=== PATIENT | male | born 1990 | race African-American/Black ===

== ENCOUNTER 2018-01-16 09:24 | Emergency (ER) | payer OTHER ==
[2018-01-16 09:31] VITALS: BP 123/73; PULSE 94; TEMP 98.4; BMI 29.7
[2018-01-16] MEDS ORDERED: LORATADINE 10 MG TABLET ONE (09:48)
[2018-01-16] MEDS ORDERED: LORATADINE 10 MG TABLET PO ONE (09:51)
--- NOTE | 2018-01-16 09:54 | PDOC ---
History of Present Illness - General Chief Complaint: Eye Problem Stated Complaint: SWOLLEN LT EYE Time Seen by Provider: 01/16/18 09:40 History Source: Patient Exam Limitations: No Limitations (L eye swelling X 4 days) Past History - Past Medical History Allergies/Adverse Reactions: Allergies Allergy/AdvReac Type Severity Reaction Status Date / Time No Known Allergies Allergy Verified 01/16/18 09:31 Home Medications: Ambulatory Orders Doxycycline Monohydrate [Monodox] 100 mg PO Q12H #14 capsule 01/16/18 Erythromycin 0.5% Eye Ointment [Erythromycin 0.5% Eye Ointment -] 1 applic AD TID 7 Days #1 tube 01/16/18 Loratadine 10 mg PO DAILY 30 Days #30 tablet 01/16/18 COPD: No - Suicide/Smoking/Psychosocial Hx Smoking History: Never smoked *Physical Exam - Vital Signs Last Vital Signs Temp Pulse Resp BP Pulse Ox 98.4 F 94 H 18 123/73 99 01/16/18 09:29 01/16/18 09:29 01/16/18 09:29 01/16/18 09:29 01/16/18 09:29 - Physical Exam General Appearance: Yes: Nourished HEENT: positive: EOMI, EDMAR, Other (conjuctiva clear, + upper eye lid swelling-- moderate with crusty eye lid--L eye) Respiratory/Chest: positive: Lungs Clear, Normal Breath Sounds Cardiovascular: positive: Regular Rhythm, Regular Rate 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, Fully Oriented, Alert Medical Decision Making - Medical Decision Making 01/16/18 09:49 27y/o M with no prior med hx p/w L eye lid swelling X 4 days, denies trauma, contact lens use or blurred vision exam consistent with L blepharitis Rx for erythromycin oniment sent to pharmacy warm compress *DC/Admit/Observation/Transfer Diagnosis at time of Disposition: Blepharitis of left eye Qualifiers: Blepharitis type: unspecified type Eyelid: upper Qualified Code(s): H01.004 - Unspecified blepharitis left upper eyelid - Discharge Dispostion Disposition: HOME Condition at time of disposition: Stable Decision to Admit order: No - Prescriptions Prescriptions: Doxycycline Monohydrate [Monodox] 100 mg PO Q12H #14 capsule Erythromycin 0.5% Eye Ointment [Erythromycin 0.5% Eye Ointment -] 1 applic AD TID 7 Days #1 tube Loratadine 10 mg PO DAILY 30 Days #30 tablet - Referrals - Patient Instructions Additional Instructions: Wash your hands thoroughly. Moisten a clean washcloth with warm water. Close eyes and place washcloth on eyelids for about 5 minutes, reheating the washcloth as necessary. Repeat several times daily. followup with primary care doctor if condition worsening or return to the [facility] - Post Discharge Activity
== END 2018-01-16 10:01 | disposition home or self-care (01) ==
LOC: JERFT 09:24
DX: H01.004 Unspecified blepharitis left upper eyelid (principal)
CPT/HCPCS: 99281-25

== ENCOUNTER 2018-03-07 11:09 | Emergency (ER) | payer OTHER ==
[2018-03-07 11:37] VITALS: BP 146/83; PULSE 75; TEMP 98; BMI 65.6
[2018-03-07] MEDS ORDERED: IBUPROFEN 400 MG TABLET (FP) PO ONE ×2 (12:01→12:04)
--- NOTE | 2018-03-07 12:08 | PDOC ---
History of Present Illness - General Chief Complaint: Sore Throat Stated Complaint: SORE THROAT Time Seen by Provider: 03/07/18 11:46 History Source: Patient - History of Present Illness Timing/Duration: reports: week Associated Symptoms: reports: cough Past History - Past Medical History Allergies/Adverse Reactions: Allergies Allergy/AdvReac Type Severity Reaction Status Date / Time No Known Allergies Allergy Verified 03/07/18 11:36 Home Medications: Ambulatory Orders NK [No Known Home Medication] 03/07/18 COPD: No - Suicide/Smoking/Psychosocial Hx Smoking History: Never smoked Have you smoked in the past 12 months: No Information on smoking cessation initiated: No Hx Alcohol Use: No Drug/Substance Use Hx: No Review of Systems - Review of Systems Constitutional: No: Chills, Fever HEENTM: Yes: Throat Pain. No: Ear Pain Respiratory: Yes: Cough. No: Shortness of Breath, Wheezing *Physical Exam - Vital Signs Last Vital Signs Temp Pulse Resp BP Pulse Ox 98.0 F 75 16 146/83 100 03/07/18 11:35 03/07/18 11:35 03/07/18 11:35 03/07/18 11:35 03/07/18 11:35 - Physical Exam General Appearance: Yes: Appropriately Dressed. No: Apparent Distress HEENT: positive: EOMI, Normal Voice, TMs Normal, Other (R tonsil swelling). negative: Tonsillar Exudate, Tonsillar Erythema Neck: positive: Supple. negative: Lymphadenopathy (R), Lymphadenopathy (L) Respiratory/Chest: negative: Respiratory Distress Integumentary: positive: Dry, Warm Neurologic: positive: Fully Oriented, Alert, Normal Mood/Affect Medical Decision Making - Medical Decision Making 03/07/18 12:09 27-year-old male, no significant history, non-smoker, here with sore throat 1 week. States he had cough few days ago that has since resolved. No ear pain, rhinorrhea, fever or chills. Has not taken anything for pain. No sick contacts or recent travel. 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 Pain control in ED rapid strep pending *DC/Admit/Observation/Transfer Diagnosis at time of Disposition: Sore throat - Discharge Dispostion Disposition: HOME Condition at time of disposition: Good - Referrals - Patient Instructions Printed Discharge Instructions: DI for Viral Pharyngitis Additional Instructions: Your strep test was negative You most likely have a viral sore throat Take Motrin or Tylenol for pain as needed until symptoms resolve - Post Discharge Activity
== END 2018-03-07 12:38 | disposition home or self-care (01) ==
LOC: JERFT 11:09
DX: J02.9 Acute pharyngitis, unspecified (principal)
CPT/HCPCS: 87070; 87430; 99281-25

== ENCOUNTER 2018-06-17 12:07 | Emergency (ER) | payer OTHER ==
[2018-06-17 12:13] VITALS: BP 136/86; PULSE 67; TEMP 98; BMI 29.0
[2018-06-17] MEDS ORDERED: IBUPROFEN 400 MG TABLET (FP) PO ONE ×2 (13:21→13:25)
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
== END 2018-06-17 14:07 | disposition home or self-care (01) ==
LOC: JERFT 12:07
DX: S20.211A Contusion of right front wall of thorax, initial encounter (principal); V18.4XXA Pedal cycle driver injured in noncollision transport accident in traffic accident, initial encounter; Y92.410 Unspecified street and highway as the place of occurrence of the external cause; Y93.55 Activity, bike riding; Y99.8 Other external cause status
CPT/HCPCS: 71101-TC-FY; 99281-25

== ENCOUNTER 2019-03-22 12:50 | Emergency (ER) | payer OTHER ==
[2019-03-22 13:14] VITALS: BP 136/95; PULSE 99; TEMP 98.2; BMI 30.5
--- NOTE | 2019-03-22 13:52 | PDOC ---
History of Present Illness - General Chief Complaint: Cold Symptoms Stated Complaint: ALLERGIES Time Seen by Provider: 03/22/19 13:29 - History of Present Illness Initial Comments: 03/22/19 13:43 CHIEF COMPLAINT: congestion HISTORY OF PRESENT ILLNESS: 28 yo M with no PMH presents to fast track with nasal congestion. Patient denies any fever, sore throat, cough, chills, vomiting, diarrhea. Reports "it just feels uncomforable now." Patient is not taking any medications for his congestion at this time. No recent travel or sick contacts. PAST MEDICAL HISTORY: Denies past medical history FAMILY HISTORY: Denies SOCIAL HISTORY: Denies tobacco, alcohol, illicit drug use. SURGICAL HISTORY: Denies ALLERGIES: No known drug allergies REVIEW OF SYSTEMS General/Constitutional: Denies fever or chills. Denies weakness, weight change. HEENT: "Nasal congestion." Denies change in vision. Denies ear pain or discharge. Denies sore throat. Cardiovascular: Denies chest pain or shortness of breath. Respiratory: Denies cough, wheezing, or hemoptysis. Gastrointestinal: Denies nausea, vomiting, diarrhea or constipation. Denies rectal bleeding. Genitourinary: Denies dysuria, frequency, or change in urination. Musculoskeletal: Denies joint or muscle swelling or pain. Denies neck or back pain. Skin and breasts: Denies rash or easy bruising. Neurologic: Denies headache, vertigo, loss of consciousness, or loss of sensation. PHYSICAL EXAM General Appearance: Well-appearing, appropriately dressed. No apparent distress , no intoxication. HEENT: Swollen turbinates, minimal post nasal drip. EOMI, PERRLA, normal ENT inspection, normal voice, TMs normal, pharynx normal. No conjunctival pallor. No photophobia, scleral icterus. Neck: Supple. Trachea midline. No tenderness, rigidity, carotid bruit, stridor , lymphadenopathy, or thyromegaly. Respiratory/Chest: Lungs CTAB. No shortness of breath, chest tenderness, respiratory distress, accessory muscle use. No crackles, rales, rhonchi, stridor , wheezing, dullness Cardiovascular: RRR. S1, S2. No JVD, murmur, bradycardia, tachycardia. Vascular Pulses: Dorsalis-Pedis (R): 2+, Dorsalis-Pedis (L): 2+ Gastrointestinal/Abdominal: Normal bowel sounds. Abdomen soft, non-distended. No tenderness or rebound tenderness. No organomegaly, pulsatile mass, guarding , hernia, hepatomegaly, splenomegaly. Lymphatic: No adenopathy, tenderness. Musculoskeletal/Extremities: Normal inspection. FROM of all extremities, normal capillary refill. Pelvis Stable. No CVA tenderness. No tenderness to extremities, pedal edema, swelling, erythema or deformity. Integumentary: Appropriate color, dry, warm. 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 Fully oriented, alert. Appropriate mood/affect. Motor strength 5/5. No appreciable EOM palsy, facial droop or sensory deficit. Past History - Past Medical History Allergies/Adverse Reactions: Allergies Allergy/AdvReac Type Severity Reaction Status Date / Time No Known Allergies Allergy Verified 03/22/19 13:12 Home Medications: Ambulatory Orders Amox-Tr/K Cl [Augmentin 875Mg Tablet] 1 tab PO BID #20 tablet 03/28/18 Ibuprofen 800 mg PO TID #30 tablet 06/17/18 Fluticasone Prop 0.05% Nasal [Flonase -] 1 - 2 spray NS BID #1 spray.pump Loratadine [Claritin] 10 mg PO DAILY #20 tablet 03/22/19 Pseudoephedrine HCl [Sudafed] 120 mg PO BID #20 tablet 03/22/19 COPD: No DVT: No - Immunization History Immunization Up to Date: Yes - Suicide/Smoking/Psychosocial Hx Smoking History: Never smoked Have you smoked in the past 12 months: No Hx Alcohol Use: No Drug/Substance Use Hx: No Substance Use Type: None *Physical Exam - Vital Signs Last Vital Signs Temp Pulse Resp BP Pulse Ox 98.2 F 99 H 18 136/95 97 03/22/19 13:12 03/22/19 13:12 03/22/19 13:12 03/22/19 13:12 03/22/19 13:12 Medical Decision Making - Medical Decision Making 03/22/19 13:52 28 yo M with no PMH presents to fast track with nasal congestion. Flonase, sudafed, claritin *DC/Admit/Observation/Transfer Diagnosis at time of Disposition: Viral sinusitis - Discharge Dispostion Disposition: HOME Decision to Admit order: No - Prescriptions Prescriptions: Fluticasone Prop 0.05% Nasal [Flonase -] 1 - 2 spray NS BID #1 spray.pump Loratadine [Claritin] 10 mg PO DAILY #20 tablet Pseudoephedrine HCl [Sudafed] 120 mg PO BID #20 tablet - Referrals Referrals: Aleida Lewis MD [Primary Care Provider] - - Patient Instructions Printed Discharge Instructions: DI for Sinusitis - Post Discharge Activity
== END 2019-03-22 13:57 | disposition home or self-care (01) ==
LOC: JERFT 12:50
DX: J32.8 Other chronic sinusitis (principal); B97.89 Other viral agents as the cause of diseases classified elsewhere
CPT/HCPCS: 99281-25

== ENCOUNTER 2019-06-09 13:29 | Emergency (ER) | payer OTHER ==
--- NOTE | 2019-06-09 13:39 | PDOC ---
Rapid Medical Evaluation Time Seen by Provider: 06/09/19 13:31 Medical Evaluation: Allergies Allergy/AdvReac Type Severity Reaction Status Date / Time No Known Allergies Allergy Verified 03/22/19 13:12 06/09/19 13:32 CC: cough x "a few days" PE: Speaking full sentences. Lungs CTAB. Orders: nothing Patient will proceed to ED for further evaluation. Discharge Disposition - Diagnosis Cough - Referrals - Patient Instructions - Post Discharge Activity
[2019-06-09 13:40] VITALS: BP 131/90; PULSE 102; TEMP 98.2; BMI 29.0
[2019-06-09] MEDS ORDERED: ALBUTEROL SO4 2.5/IPRATROPIUM 0.5 INH SOL 3 ML VIAL.NEB. NEB ONE ×2 (13:47→14:10)
[2019-06-09] MEDS ORDERED: predniSONE 20 MG TABLET (UD) PO ONE (14:10)
[2019-06-09] MEDS ORDERED: predniSONE 20 MG TABLET (UD) ONE (14:18)
--- NOTE | 2019-06-09 14:42 | PDOC ---
History of Present Illness - General Chief Complaint: Asthma Stated Complaint: ASTHMA Time Seen by Provider: 06/09/19 13:31 History Source: Patient Exam Limitations: No Limitations - History of Present Illness Initial Comments: 06/09/19 14:37 28-year-old male presents the emergency room with complaints of increasing wheezing cough and shortness of breath along with nasal congestion for the past 2 days. Patient states history of asthma but does not have an inhaler at home so used his grandmother's this morning with good effect. Patient denies fever, chills but states has had increased nasal congestion causing him to which he feels is dripping to the back of his throat. Patient has no other complaints at this time . Patient denies smoking. Is this a multiple visit Asthma Patient?: No Timing/Duration: reports: other Severity: reports: mild Possible Cause: Yes: occasional episodes Modifying Factors: improves with: activity, coughing Associated Symptoms: reports: cough, nasal congestion, shortness of breath, wheezing Past History - Travel Traveled outside of the country in the last 30 days: No Close contact w/someone who was outside of country & ill: No - Past Medical History Allergies/Adverse Reactions: Allergies Allergy/AdvReac Type Severity Reaction Status Date / Time No Known Allergies Allergy Verified 03/22/19 13:12 Home Medications: Ambulatory Orders NK [No Known Home Medication] 06/09/19 COPD: No DVT: No - Immunization History Immunization Up to Date: Yes - Psycho Social/Smoking Cessation Hx Smoking History: Never smoked Have you smoked in the past 12 months: No Hx Alcohol Use: No Drug/Substance Use Hx: No Substance Use Type: None Patient Lives Alone: No Lives with/in: spouse/SO Respiratory Specific PMHX - Complaint Specific PMHX Hx Asthma: Yes Review of Systems - Review of Systems Able to Perform ROS?: Yes Constitutional: No: Symptoms Reported HEENTM: Yes: Nose Congestion Respiratory: Yes: Cough, Shortness of Breath, Wheezing Cardiac (ROS): No: Symptoms Reported ABD/GI: No: Symptoms Reported : No: Symptoms Reported Musculoskeletal: No: Symptoms Reported Neurological: Yes: Headache *Physical Exam - Vital Signs Last Vital Signs Temp Pulse Resp BP Pulse Ox 98.2 F 102 H 17 131/90 99 06/09/19 13:36 06/09/19 13:36 06/09/19 13:36 06/09/19 13:36 06/09/19 13:36 - Physical Exam General Appearance: Yes: Nourished, Appropriately Dressed. No: Apparent Distress HEENT: positive: TMs Normal, Pharynx Normal. negative: Pale Conjunctivae Neck: positive: Supple Respiratory/Chest: positive: Lungs Clear, Normal Breath Sounds, Wheezing (mild exp to rt base). negative: Respiratory Distress Cardiovascular: positive: Regular Rhythm, Regular Rate (88 ). negative: Murmur Gastrointestinal/Abdominal: positive: Soft. negative: Tenderness Extremity: positive: Normal Inspection Integumentary: positive: Normal Color, Warm, Moist Neurologic: positive: Motor Strength 5/5 (ambulatory) ED Treatment Course - Medications Given in the ED: ED Medications Discontinued Medications Generic Name Dose Route Start Last Admin Trade Name Freq PRN Reason Stop Dose Admin Albuterol/Ipratropium 1 amp 06/09/19 14:10 06/09/19 14:23 Duoneb - NEB 06/09/19 14:11 1 amp ONCE ONE Administration Prednisone 40 mg 06/09/19 14:10 06/09/19 14:23 Deltasone - PO 06/09/19 14:11 40 mg ONCE ONE Administration Medical Decision Making - Medical Decision Making 06/09/19 14:36 chief complaint: Patient with cough, shortness of breath and wheezing for the past 2 days relieved with his grandmother's inhaler requesting medication for the above symptoms no other complaints Exam patient with mild expiratory wheeze to the right base otherwise normal vital signs positive rhinorrhea Plan : Prednisone 40 p.o. once albuterol nebulizer and discharged home with the same 06/09/19 14:58 Patient reassessed no auscultated wheezing vital signs stable will discharge home with the same Discharge - Discharge Information Clinical Impression/Diagnosis: Cough Condition: Improved Disposition: HOME - Follow up/Referral Referrals: Aleida Lewis MD [Primary Care Provider] - - Patient Discharge Instructions Patient Printed Discharge Instructions: Asthma -- Adult Additional Instructions: Take prednisone starting tomorrow for the next 2 days since you were given your first dose here in the ER. Please use albuterol inhaler as needed for wheezing and cough. Please take Claritin as prescribed for the next 7 days to decrease nasal congestion. drink plenty of fluids and keep nasal passages clear. - Post Discharge Activity
== END 2019-06-09 15:10 | disposition home or self-care (01) ==
LOC: JER 13:29
PROC: 3E0F7GC Introduction of Other Therapeutic Substance into Respiratory Tract, Via Natural or Artificial Opening (ICD-10-PCS; principal; 2019-06-09)
DX: J45.909 Unspecified asthma, uncomplicated (principal); R05 Cough
CPT/HCPCS: 99282-25

== ENCOUNTER 2020-04-02 13:39 | Emergency (ER) | payer OTHER ==
[2020-04-02 13:54] VITALS: BP 117/78; PULSE 78; TEMP 98.1; BMI 29.0
--- NOTE | 2020-04-02 14:28 | PDOC ---
History of Present Illness - General Chief Complaint: Pain Stated Complaint: LT HAND FINGER INJURY Time Seen by Provider: 04/02/20 14:06 History Source: Patient Exam Limitations: Clinical Condition - History of Present Illness Initial Comments: 04/02/20 14:24 Patient with no significant past medical history present with complaint of 1 month history of persistent left index finger pain status post straining finger a month ago while carrying something heavy. Patient reported he has not followed up until today because he just had the time today. Report he feels bone might have moved out of place in the left index finger. Denies any other symptoms. Is this a multiple visit Asthma Patient?: No Timing/Duration: other (1 month) Past History - Medical History Allergies/Adverse Reactions: Allergies Allergy/AdvReac Type Severity Reaction Status Date / Time No Known Allergies Allergy Verified 04/02/20 13:51 Home Medications: Ambulatory Orders Albuterol Sulfate Inhaler - [Ventolin HFA Inhaler -] 1 - 2 inh PO QID PRN #1 inhaler 06/09/19 Asthma: Yes COPD: No DVT: No - Immunization History Immunization Up to Date: Yes - Psycho-Social/Smoking History Smoking History: Unknown if ever smoked Have you smoked in the past 12 months: No - Substance Abuse Hx (Audit-C & DAST Scrn) How often the patient has a drink containing alcohol: 2-4 times / month Number of drinks the patient has on a typical day: 3 or 4 Score: In Men: 4 or > Positive; In Women: 3 or > Positive: 3 Screen Result (Pos requires Nsg. Audit-10AR): Negative In the last yr the pt used illegal drug/Rx for NonMed reason: No Score: Yes response is considered Positive: 0 Screen Result (Positive result requires Nsg. DAST-10): Negative Review of Systems - Review of Systems Able to Perform ROS?: Yes Is the patient limited Tajik proficient: No Constitutional: No: Chills, Fever, Malaise HEENTM: No: Symptoms Reported Respiratory: No: Symptoms reported Cardiac (ROS): No: Symptoms Reported ABD/GI: No: Symptoms Reported Musculoskeletal: Yes: Symptoms Reported, See HPI, Muscle Pain (left index finger) Integumentary: No: Symptoms Reported Neurological: No: Numbness, Paresthesia, Tingling, Weakness All Other Systems: Reviewed and Negative *Physical Exam - Vital Signs Last Vital Signs Temp Pulse Resp BP Pulse Ox 98.1 F 78 16 117/78 99 04/02/20 13:52 04/02/20 13:52 04/02/20 13:52 04/02/20 13:52 04/02/20 13:52 - Physical Exam 04/02/20 14:26 GENERAL: Well developed, well nourished. Awake and alert. No acute distress. PULMONARY: No evidence of respiratory distress. MUSCULOSKELETAL : Mild tenderness to MCP of left index finger. No tenderness to rest of hand. 5 out of 5 normal strength to left finger. No finger malrotation. No visible deformity to hand or fingers SKIN: Warm and dry. Normal capillary refill. No rashes. No jaundice. NEUROLOGICAL: Alert, awake, appropriate. No motor deficits in the lower extremities. Gait is normal without ataxia. PSYCHIATRIC: Cooperative. Good eye contact. Appropriate mood and affect. General Appearance: Yes: Nourished, Appropriately Dressed. No: Apparent Distress ED Treatment Course - RADIOLOGY Radiology Studies Ordered: Category Date Time Status FINGER(S) LEFT [RAD] Stat Radiology 04/02/20 14:11 Ordered HAND- LEFT [RAD] Stat Radiology 04/02/20 14:11 Ordered Medical Decision Making - Medical Decision Making 04/02/20 14:25 Patient with no significant past medical history present with complaint of 1 month history of persistent left index finger pain status post straining finger a month ago while carrying something heavy. Patient reported he has not followed up until today because he just had the time today. Report he feels bone might have moved out of place in the left index finger. Denies any other symptoms. Exam significant for mild tenderness to MCP of left index finger with no visible deformity otherwise unremarkable exam. 5 out of 5 strength to left index finger. No finger rotation when making a fist. Patient symptoms likely finger strain. X-ray of left finger and hand ordered to rule out acute abnormality. Patient will refer for Ortho based on x-ray results 04/02/20 15:05 X-ray of left hand and finger shows no acute abnormality. Patient stable for discharge to follow-up with orthopedic hand specialist Discharge - Discharge Information Problems reviewed: Yes Clinical Impression/Diagnosis: Pain in finger of left hand Condition: Stable Disposition: HOME - Admission No - Follow up/Referral Referrals: Fabian Tanner MD [Staff Physician] - - Patient Discharge Instructions Patient Printed Discharge Instructions: DI for Finger Sprain Additional Instructions: X-ray of your finger shows no visible fracture however x-ray will not show tendon injury. Follow-up referring orthopedic hand specialist for reevaluation and possible MRI if needed - Post Discharge Activity
== END 2020-04-02 14:55 | disposition home or self-care (01) ==
LOC: JERFT 13:39
DX: M79.645 Pain in left finger(s) (principal)
CPT/HCPCS: 73130-TC-LT-FY; 73140-TC-LT-FY; 99284-25

== ENCOUNTER 2020-05-14 05:06 | Day surgery (SDC) | payer OTHER ==
[2020-05-11 13:52] VITALS: BMI 29.7
--- OUTSIDE RECORDS SUMMARY | 2020-05-14 05:10 | XMS ---
:1990 Author Organization [facility] Support Name Relationship Address Phone SHEBLY PEÑA Unavailable [address] [place] [address] ANAMARIA Unavailable [address] [phone] [place] [address] FIRST DIRECT Unavailable [address] [place] [address] SPRINT Unavailable [facility] [address] [place] [address] DARWIN RIZZO SISTER [address] [facility] [address] [place] [address] DARWIN RIZZO [address] [facility] [address] [place] [address] Re-disclosure Warning The records that you are about to access may contain information from federally- assisted alcohol or drug abuse programs. If such information is present, then the following federally mandated warning applies: This information has been disclosed to you from records protected by federal confidentiality rules (42 CFR part 2). The federal rules prohibit you from making any further disclosure of this information unless further disclosure is expressly permitted by the written consent of the person to whom it pertains or as otherwise permitted by 42 CFR part 2. A general authorization for the release of medical or other information is NOT sufficient for this purpose. The Federal rules restrict any use of the information to criminally investigate or prosecute any alcohol or drug abuse patient.The records that you are about to access may contain highly sensitive health information, the redisclosure of which is protected by Article 27-F of the [facility] Public Health law. If you continue you may haveaccess to information: Regarding HIV / AIDS; Provided by facilities licensed or operated by the [facility] Office of Mental Health; or Provided by the [facility] Office for People With Developmental Disabilities. If such information is present, then the following [facility] mandated warning applies: This information has been disclosed to you from confidential records which are protected by state law. State law prohibits you from making any further disclosure of this information without the specific written consent of the person to whom it pertains, or as otherwise permitted by law. Any unauthorized further disclosure in violation of state law may result in a fine or residential sentence or both. A general authorization for the release of medical or other information is NOT sufficient authorization for further disclosure. Insurance Providers Payer name Policy type Policy ID Covered Covered republican's Policy P brandon / Coverage republican ID relationship to Elias Inf ormation type elias GotaCopy [id number] SP [id number] NON CAP AETNA O [id number] SP [id number] [employer] [id number] SP [id number] NON CAP AETNA O [id number] SP [id number] [id number] SP [id number] HEALTHCARE PPO Results ID Date Data Source [id number] 05/10/2020 11:54:00 AM EDT [facility] Name Value Range Interpretation Description Data Sup porting Code Source(s) Document(s ) SARS [facility] coronavirus 2 RNA This lab was ordered by [facility] and reported by [facility]. Procedure
--- NOTE | 2020-05-14 08:05 | HP ---
Satellite [facility] - Chief Complaint Chief Complaint: left index finger cyst - Past Medical History Allergies/Adverse Reactions: Allergies Allergy/AdvReac Type Severity Reaction Status Date / Time No Known Allergies Allergy Verified 05/11/20 13:53 - Current Medications Current Medications: Home Medications Medication Instructions Recorded Hydrocodone/Acetaminophen 1 each PO Q6H #12 tablet MDD 4 05/14/20 [Hydrocodone-Acetamin 5-325 mg] Satellite Physical Exam - Physical Examination General Appearance: Well Nourished, Well Developed, Alert & Oriented x3 ENT: Clear Lung: Normal air movement Extremities: Other (left index finger- +cyst, + ttp, good rom, nvi) Neurological: Intact, Alert, Oriented Satellite Impression/Plan - Impression/Plan Impression: left index finger retinacular cyst Operative Procedure: left index finger retinacular cyst excision Date to be Performed: 05/14/20
[2020-05-14] MEDS ORDERED: MIDAZOLAM HCL 2 MG/2 ML SINGLE DOSE VIAL ONE ×2 (12:01)
[2020-05-14] MEDS ORDERED: PROPOFOL 20 ML ONE (12:01)
[2020-05-14] MEDS ORDERED: ceFAZolin 2 GRAM PREMIX BAG IVPB ONE (12:10)
[2020-05-14] MEDS ORDERED: ceFAZolin SODIUM 1 GM VIAL ONE (12:11)
[2020-05-14] MEDS ORDERED: BUPIVACAINE HCL/PF 0.5% (5 MG/ML) 30 ML VIAL IJ ONE (12:18)
[2020-05-14] MEDS ORDERED: LIDOCAINE HCL 1%, 10 MG/ML (20ML VIAL) NR ONE (12:18)
[2020-05-14] MEDS ORDERED: LIDOCAINE HCL 1%, 10 MG/ML (20ML VIAL) ONE (12:19)
[2020-05-14] MEDS ORDERED: KETOROLAC TROMETHAMINE 30 MG/1 ML VIAL ONE ×2 (12:29→12:30)
--- NOTE | 2020-05-14 12:56 | OP ---
Operative Note - Note: Operative Date: 05/14/20 Pre-Operative Diagnosis: left hand/index finger mass Operation: excision mass left hand/index finger Post-Operative Diagnosis: Same as Pre-op Surgeon: Fabian Tanner Anesthesiologist/HOTEL SALES MANAGER: Lilly Ch Anesthesia: Local, MAC Specimens Removed: mass left hand Estimated Blood Loss (mls): 0 Drains, Volume Out (mls): 0 Blood Volume Replaced (mls): 0 Fluid Volume Replaced (mls): 500 Operative Report Dictated: Yes
[2020-05-14 13:15] VITALS: TEMP 97.7
[2020-05-14 15:25] VITALS: BP 129/82; PULSE 64
--- NOTE | 2020-05-14 19:28 | OP ---
DATE OF OPERATION: 05/14/2020 PREOPERATIVE DIAGNOSIS: Left index finger/hand mass. POSTOPERATIVE DIAGNOSIS: Left index finger/hand mass, likely retinacular cyst. PROCEDURE: Left hand/index finger mass excision. SURGEON: Peña Wesley M.D. ANESTHESIOLOGIST: Lilly Ch MD. ANESTHESIA: MAC and local injection of 10 mL 0.5% Marcaine, 1% lidocaine mix DRAINS: None. COMPLICATIONS: None. SPECIMENS: Mass left hand/index finger. BLOOD LOSS: None. BLOOD GIVEN: None. FLUID REPLACEMENT: 500 mL Plasmalyte. INDICATION: This patient is a 29-year-old male with the preoperative diagnosis of a very painful mass on the junction of the hand and the left index finger on the volar aspect. After understanding the potential risks, complications, alternatives, benefits to surgery versus nonsurgical treatment, the patient elected to undergo this procedure. DESCRIPTION OF PROCEDURE; The patient was brought to the operating room, peripheral IV placed, IV sedation, given, 2 g of IV Ancef were given. The entire case was done under 3.8 loupe magnification. The left upper extremity was prepped and draped in sterile fashion. A longitudinal incision was marked out with a marking pen. 10 mL 0.5% Marcaine, 1% lidocaine mix was injected in and around the surgical incision. The left upper extremity was then elevated, exsanguinated with an Esmarch bandage. The tourniquet inflated to 250 mmHg. The longitudinal incision was made with a number 15 scalpel blade. Subcutaneous hemostasis was achieved with bipolar cautery. Dissection was done with a small Littler scissors. The incision was between the 2 neurovascular bundles, so they were not encountered during the case. Circumferential dissection was done down to the A1 tracey sheath area, where a very hard retinacular cyst about the size of the small garcia was encountered. It was excised in its entirety and sent off the field as specimen. The area was copiously irrigated and washed out. The other abnormal tissue was identified, it was irrigated again. Closure was done with 4-0 undyed Vicryl in the deep dermal layer, and final skin approximation was done with simple interrupted 3-0 nylon sutures. The area was then washed and dried and covered with Xeroform gauze, 4x4 gauze, fluffs between the fingers, Webril, and an Ho bandage. The tourniquet was taken down after total tourniquet time of 15 minutes. There were no complications during the case. The patient tolerated the procedure quite well and was brought to the ambulatory recovery in stable condition. PEÑA WESLEY M.D. [id number]
--- NOTE | 2020-05-16 17:29 | PATH ---
Surgical Pathology Report Patient Name: NELLA RIZZO [facility] Rec. #: [id number] /Age/Gender: 1990 (Age: 29) / M Account: [id number] Location: [facility] SURGICAL Taken: 05/14/2020 Received: 05/14/2020 Reported: 05/16/2020 Physicians: Marcus Wright M.D. Specimen(s) Received MASS LEFT INDEX FINGER Clinical History Cyst left index finger Final Diagnosis MASS LEFT INDEX FINGER, EXCISION: CONSISTENT WITH GANGLION CYST. Electronically Signed Ryne Wilson M.D. Gross Description Received in formalin labeled "mass left index finger," is a 0.6 x 0.4 x 0.1 cm armendariz portion of soft tissue, consistent with a possible cyst. The specimen is submitted in toto in one cassette. /05/14/2020 saudi/05/14/2020
== END 2020-05-14 14:05 | disposition home or self-care (01) ==
LOC: JASU-SURG 05:06
PROVIDERS: ATTEND Orthopaedic Surgery
PROC: 0LB80ZZ Excision of Left Hand Tendon, Open Approach (ICD-10-PCS; principal; 2020-05-14 10:30)
DX: M67.442 Ganglion, left hand (principal)
CPT/HCPCS: 88307-TC

== ENCOUNTER 2020-09-08 08:52 | Emergency (ER) | payer OTHER ==
[2020-09-08 08:59] VITALS: BP 130/98; PULSE 78; TEMP 97.8; BMI 29.7
[2020-09-08] MEDS ORDERED: KETOROLAC TROMETHAMINE 60 MG/2 ML VIAL IM ONE (09:40)
[2020-09-08] MEDS ORDERED: KETOROLAC TROMETHAMINE 60 MG/2 ML VIAL ONE (10:15)
== END 2020-09-08 10:24 | disposition home or self-care (01) ==
LOC: JERFT 08:52
PROC: 3E0233Z Introduction of Anti-inflammatory into Muscle, Percutaneous Approach (ICD-10-PCS; principal; 2020-09-08)
DX: R51.9 Headache, unspecified (principal)
CPT/HCPCS: 70450-TC; 99284-25